=== PATIENT | female | born 1960 | race Caucasian/White ===

== ENCOUNTER 2020-09-25 22:32 | Emergency (ER) | payer OTHER ==
[~2020-09-25] VITALS: Ht 162.6 cm; Wt 77.1 kg
[2020-09-26 00:10] VITALS: BP 140/72
== END 2020-09-26 00:10 | disposition home or self-care (01) ==
LOC: M.ERS 22:32
DX: Z20.822 Contact with and (suspected) exposure to COVID-19 (principal); F17.210 Nicotine dependence, cigarettes, uncomplicated; Z98.51 Tubal ligation status